=== PATIENT | male | born 1985 | race Two or more races ===

== ENCOUNTER 2025-03-22 19:27 | Emergency (ER) | payer OTHER ==
[~2025-03-22] VITALS: Ht 180.3 cm; Wt 80.7 kg
[2025-03-22] MEDS ORDERED: 0.9 % SODIUM CHLORIDE 1,000 ML IV ONE (21:30)
[2025-03-22] MEDS ORDERED: FAMOtidine 10 MG/ML (4ML VIAL) IV ONE (21:30)
[2025-03-22] MEDS ORDERED: KETOROLAC TROMETHAMINE 30 MG VIAL IV ONE (21:30)
[2025-03-22] MEDS ORDERED: KETOROLAC TROMETHAMINE 30 MG VIAL ONE (21:54)
[2025-03-22] MEDS ORDERED: FAMOTIDINE/PF 20 MG/2 ML VIAL ONE (21:54)
[2025-03-22 22:49] LABS: BASO % 0.5 % (0.1-1.2); EOS # 0.25 (0.04-0.54); EOS % 4.1 % (0.7-7.0); HEMATOCRIT 37.6 % (40.1-51.0); HEMOGLOBIN 12.8 g/dL (13.7-17.5); LYMPH # 1.92 (1.18-3.74); LYMPH % 31.7 % (19.3-53.1); MEAN CORPUSCULAR HEMOGLOBIN 30.5 pg (25.6-32.2); MONO # 0.62 (0.24-0.82); MONO % 10.2 % (4.7-12.5); NEUT # 3.21 (1.56-6.13); NEUT % 53.2 % (34.0-71.1); PLATELET COUNT 294 K/uL (163-369); RED BLOOD COUNT 4.19 M/uL (4.63-6.08); RED CELL DISTRIBUTION WIDTH 12.4 % (11.6-14.4)
[2025-03-22 23:12] LABS: ALBUMIN 3.6 gm/dL (3.4-5.0); BILIRUBIN TOTAL 0.69 mg/dL (0.3-1.2); CALCIUM 8.7 mg/dL (8.5-10.1); CREATININE SERUM 1.31 mg/dL (0.70-1.30); GFR 61.24; GLOBULINA 3.4 G/DL (2.4-3.5); POTASSIUM 4.08 mEq/L (3.5-5.1)
[2025-03-22 23:15] LABS: INR 1.05; PARTIAL THROMBOPLASTIN TIME 25.4 SECONDS (22.0-34.0); PROTHROMBIN TIME 11.4 SECONDS (9.0-11.5)
[2025-03-23] LABS: PH,URINE 6.5 (5.0-8.0); URINE APPEARANCE Clear; URINE BILIRRUBIN Negative (NEGATIVE); URINE BLOOD Negative; URINE COLOR Yellow; URINE GLUCOSE Negative (NEGATIVE); URINE KETONE Trace (NEGATIVE); URINE LEUKOCYTE Negative; URINE NITRATE Negative; URINE PROTEIN Negative (NEGATIVE)
[2025-03-23 00:12] LABS: URINE BACTERIA 3.6 uL (0.0-1933); URINE CAST 0.29 uL (0.0-1.40); URINE EPITHELIAL CELLS 0.4 uL (0.0-38.8); URINE RBC 1.9 uL (0.0-20.8); URINE WBC 1.1 uL (0.0-23.2)
[2025-03-23] MEDS ORDERED: LEVSIN/SL0.125 MG SL (00:12)
[2025-03-23] MEDS ORDERED: PEPCID AC20 MG PO (00:12)
== END 2025-03-23 00:31 | disposition home or self-care (01) ==
LOC: ER 19:27
PROVIDERS: General Practice
DX: R10.31 Right lower quadrant pain (principal)